=== PATIENT | male | born 1965 | race Caucasian/White ===

== ENCOUNTER 2017-02-14 21:02 | Inpatient (IN) ==
--- NOTE | 2017-02-14 21:33 | Emergency Department Note ---
Arrival - Arrival Chief Complaint: Abdominal / Flank Pain ED Nursing Triage Note: Pt arrives via ems from [facility] for further eval of abnormal ct results. Pt states that his abd started hurting last night and worsened today. Pt at time of triage complains of being thirsty. States that pain is not as bad now, Pt was given 8 mg Morphine and 4 mg Zofran en route to ed. Mode of Arrival: Stretcher Limitations: No Limitations Source: Patient Time Seen by Provider: 02/14/17 21:30 - History of Present Illness HPI Narrative: Patient complains of abdominal pain which started last night and became much worse this morning. He describes it as sharp and left lower quadrant.. No nausea, vomiting or diarrhea. Patient was seen at [facility] where a CT scan was done that showed a probable perforated diverticulitis. Allergies/Adverse Reactions: Allergies Allergy/AdvReac Type Severity Reaction Status Date / Time No Known Allergies Allergy Verified 11/27/14 16:11 Home Medications: Home Medications Medication Instructions Recorded Confirmed Type No Known Home Medications [No 02/14/17 02/14/17 History Known Home Medications] Review of System - Review of System 12 point system: reviewed and no additional remarkable complaints except as stated - Review of System Constitutional: Present: diaphoresis, fever Head/Ears/Nose/Throat: Absent: nasal drainage Respiratory: Absent: cough Cardiovascular: Absent: chest pain Gastrointestinal: Present: abdominal pain. Absent: nausea, vomiting, diarrhea Medical,Surgical,& Family Hx - Medical History Cardio: History of: Hypertension (no meds) - Surgical History Surgical History: noncontributory - Family History Family History: noncontributory - Social History Smoking Status: Never smoker Frequency of Alcohol Use: None Type of Drug Use: None Exam Physical Examination: GENERAL: Alert. No acute distress. HEENT: Normocephalic and atraumatic. There is no nasal drainage. No pharyngeal erythema or exudate. NECK: Normal inspection. Supple. No lymphadenopathy or meningismus. LUNGS: No respiratory distress. Clear to auscultation bilaterally, no wheezes, rales or rhonchi. HEART: Regular rate and rhythm. ABDOMEN: Soft, nondistended with hypoactive bowel sounds. Very tender in the left lower quadrant and less so in the left upper quadrant. No rebound. BACK: Normal inspection. SKIN: Color normal. Warm and dry. EXTREMITIES: Nontender. Normal range of motion. No pedal edema. NEUROLOGICAL/PSYCHIATRIC: Alert and oriented -3 with normal mood and affect. Cranial nerves normal. No motor or sensory deficit. Vital Signs: Vital Signs Temperature 99.6 F 02/14/17 21:02 Pulse Rate 83 02/14/17 21:02 Respiratory Rate 20 02/14/17 21:02 Blood Pressure 120/79 02/14/17 21:02 O2 Sat by Pulse Oximetry 99 02/14/17 21:02 Course - Reevaluation(s) Reevaluation #1: I have discussed patient with Dr. Sheets and will admit to him. Time: 21:33 Results - Labs Lab Results: I have reviewed the patients labs Labs: Labs were done at [facility] and are significant as follows: White blood cell count 24.3. Hemoglobin 13.6 Hematocrit 40.1 Platelets 406 Neutrophils 83.7% Lactic acid 1.6 Glucose 141 BUN 11 Creatinine 1.0 Sodium 141 Potassium 3.1. - Impressions CT of the abdomen done at [place] shows acute distal descending/proximal sigmoid colon diverticulitis with adjacent nonspecific free fluid and evidence of perforation with scattered foci of free air. Disposition Clinical Impression: Diverticulitis, Colon perforation Case discussed with: patient, patient's family Disposition: Still a Patient Condition: Stable Time of Disposition: 21:36
[2017-02-14] MEDS ORDERED: PROMETHAZINE 25 MG/1 ML VIAL IM PRN (22:35)
[2017-02-14] MEDS ORDERED: ONDANSETRON 4 MG/2 ML VIAL IV PRN (22:35)
--- NOTE | 2017-02-14 22:52 | EKG Report ---
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
[2017-02-14] MEDS: SODIUM CHLORIDE 0.45% 1,000 ML IV SCH (23:22)
[2017-02-14] MEDS: metroNIDAZOLE INJ 500 MG in PREMIX 1 EACH IV SCH (23:29)
[2017-02-15] MEDS: PIPERACILLIN/TAZOBACTAM 3,375 MG in SODIUM CHLORIDE 0.9% 100 ML IV SCH ×3 (02:54→18:13)
[2017-02-15] MEDS: HYDROmorphone 2 MG/1 ML VIAL IV PRN (06:26)
[2017-02-15] MEDS: SODIUM CHLORIDE 0.45% 1,000 ML IV SCH ×3 (06:26→22:25)
[2017-02-15] MEDS: PANTOPRAZOLE 40 MG VIAL IV SCH (09:02)
[2017-02-15] MEDS: metroNIDAZOLE INJ 500 MG in PREMIX 1 EACH IV SCH ×3 (09:03→22:14)
--- NOTE | 2017-02-15 09:11 | XRay Report ---
XR chest 1V portable Indication: Respiratory preoperative evaluation Comparison: None available Findings: The heart and mediastinum are normal in size and configuration. The pulmonary vascularity is normal in caliber. No lung infiltrates, effusions, pneumothorax or other abnormality is demonstrated. Impression: No acute cardiopulmonary disease. PROCEDURE INTERPRETED AT [facility] DEPARTMENT OF RADIOLOGY Final Report Signed by: Dr. Antonino Spears
[2017-02-15 10:13] LABS: Basophils # 0.1 10*3/uL (0.0-0.2); Basophils % 0.3 % (0.0-0.8); Eosinophils # 0.1 10*3/uL (0.0-0.87); Eosinophils % 0.7 % (0.00-10.9); Hematocrit 37.2 VOL% (42.0-52.0); Hemoglobin 12.8 GM/DL (14.0-18.0); Immature Granulocytes % 0.6 %; Immature Granulocytes Absolute 0.11 #; Lymphocytes # 2.2 10*3/uL (1.4-4.0); Lymphocytes % 11.9 % (21.2-54.2); Mean Corpuscular HGB Conc 34.4 GM/DL (32-36); Mean Corpuscular Hemoglobin 31 PG (27-34); Mean Corpuscular Volume 88.8 FL (87-102); Mean Platelet Volume 9.2 FL (9.6-12.0); Monocytes # 1.2 10*3/uL (0.11-0.8); Monocytes % 6.4 % (1.7-12.7); Neutrophils # 14.6 10*3/uL (1.4-7.4); Neutrophils % 80.1 % (38.7-73.9); Platelet Count 381 T/CUMM (130-400); Red Blood Count 4.19 MC/CUMM (3.8-5.5); Red Cell Distribution Width 14.4 % (9.3-17.3); White Blood Count 18.3 T/CUMM (4-12)
[2017-02-15 10:43] LABS: Magnesium 2.1 MG/DL (1.8-2.4); Osmolality,Calculated 276.5 MOS/KG (273-304); Potassium 3.5 MMOL/L (3.5-5.1)
--- NOTE | 2017-02-15 11:06 | General Surg History&Physical ---
Assessment and Plan (1) Diverticulitis Status: Acute Assessment and plan: Impression: Diverticulitis with perforation. Plan: He has a few scattered dots of air under the diaphragm and the left lower quadrant but does not have peritonitis. His vital signs remained stable. White blood cell count 18. I reviewed the CT images. As he is stable I have recommended conservative treatment with antibiotic therapy and hopes to avoid surgery with a colostomy. He is in agreement with that plan. He understands that if he fails to improve or his condition worsens clinically that he will likely require emergent surgery. We will continue antibiotics and follow closely. Current Visit: Yes History of Present Illness Chief complaint: Abdominal pain History of present illness: Mr. Jane is a 51 year old male presenting to an outside facility with abdominal pain that began the night before. It slowly progressed and worsened them CT scan was done showing diverticulitis with small dots of air indicating perforation. He was transferred to our emergency room. His vital signs have been stable. He has been afebrile. He has had no nausea vomiting or diarrhea. The pain is localized to the left lower quadrant. He describes it as sharp constant and had worsened until he was admitted. Today he states the pain is generally about the same but it has not worsened. He has no pain anywhere but the left lower quadrant. States he is hungry and wants to eat. Home Medications Medication Instructions Recorded Confirmed Type No Known Home Medications [No 02/14/17 02/14/17 History Known Home Medications] Allergies Allergy/AdvReac Type Severity Reaction Status Date / Time No Known Allergies Allergy Verified 11/27/14 16:11 Medical,Surgical,& Family Hx - Medical History Cardio: History of: Hypertension (no meds) - Surgical History Surgical History: noncontributory Abdominal Surgeries: Surgical HX of: Appendectomy - Family History Family History: noncontributory Family History: Reports;: Family Diabetes (father), Family Heart Disease ( Mother (Heart Attack), Father, (CHF)), Family Hypertension (mother, father), Family Stroke (father) - Social History Smoking Status: Never smoker Frequency of Alcohol Use: None Type of Drug Use: None Exam - Constitutional Vitals: Period Temp Pulse Resp BP Sys/Fulton Pulse Ox Last 24 Hr 98.2 F-99.6 F 75-83 14-20 110-128/63-79 92-99 General appearance: no acute distress - Head Head exam: Present: normocephalic - Neck Neck exam: Present: normal inspection - Respiratory Respiratory exam: Present: clear to auscultation bilaterally - Cardiovascular Cardiovascular exam: Present: RRR - GI/Abdominal GI/Abdominal exam: Present: soft (Tender to palpation in the left lower quadrant with localized rebound. There is no tenderness in the right abdomen and he does not have peritonitis.) - Neurological Exam Neurological exam: Present: alert, oriented X3 Speech: Present: normal - Skin Skin exam: Present: normal color 12 point system: reviewed and no additional remarkable complaints except as stated Results - Labs CBC & BMP: 02/15/17 09:18 02/15/17 09:18 Lab Results: I have reviewed the past 24 hour labs
[2017-02-15] MEDS ORDERED: ACETAMINOPHEN 325 MG TABLET PO PRN (16:28)
[2017-02-16] MEDS: PIPERACILLIN/TAZOBACTAM 3,375 MG in SODIUM CHLORIDE 0.9% 100 ML IV SCH ×3 (01:10→18:22)
[2017-02-16] MEDS: HYDROmorphone 2 MG/1 ML VIAL IV PRN (05:06)
[2017-02-16] MEDS: metroNIDAZOLE INJ 500 MG in PREMIX 1 EACH IV SCH ×3 (05:59→22:12)
[2017-02-16] MEDS: SODIUM CHLORIDE 0.45% 1,000 ML IV SCH ×3 (06:13→16:16)
[2017-02-16 07:59] LABS: Basophils % 0.3 % (0.0-0.8); Eosinophils # 0.2 10*3/uL (0.0-0.87); Eosinophils % 1.6 % (0.00-10.9); Hematocrit 35.2 VOL% (42.0-52.0); Hemoglobin 12.1 GM/DL (14.0-18.0); Immature Granulocytes % 0.5 %; Immature Granulocytes Absolute 0.07 #; Lymphocytes # 2.1 10*3/uL (1.4-4.0); Lymphocytes % 15.5 % (21.2-54.2); Mean Corpuscular HGB Conc 34.4 GM/DL (32-36); Mean Corpuscular Hemoglobin 30 PG (27-34); Mean Corpuscular Volume 86.9 FL (87-102); Mean Platelet Volume 8.9 FL (9.6-12.0); Monocytes # 1.2 10*3/uL (0.11-0.8); Monocytes % 8.9 % (1.7-12.7); Neutrophils # 9.7 10*3/uL (1.4-7.4); Neutrophils % 73.2 % (38.7-73.9); Platelet Count 347 T/CUMM (130-400); Red Blood Count 4.05 MC/CUMM (3.8-5.5); White Blood Count 13.2 T/CUMM (4-12)
[2017-02-16 08:19] LABS: Eosinophils 1 % (0-10); Lymphocytes 16 % (20-55); Segmented Neutrophils 70 % (50-85); Total Cells Counted 100
[2017-02-16 08:20] LABS: Hypochromasia 1+
[2017-02-16 08:21] LABS: Microcytosis 1+; Platelet Estimate Normal
[2017-02-16] MEDS: PANTOPRAZOLE 40 MG VIAL IV SCH (08:38)
--- NOTE | 2017-02-16 12:41 | General Surgery Progress Note ---
Assessment and Plan - Time spent with patient Time spent with patient: Less than 30 minutes (1) Acute diverticulitis Status: Acute Assessment and plan: 51-year-old white male with no reported medical history admitted by Dr. Encarnacion on 02/15/2017 with acute diverticulitis with small perforation. Patient has been started on antibiotics, pain and nausea control, and IV fluids. He is tolerated a liquid diet and he will be advanced to a full liquid diet today. Patient's white blood cell count is down to 13 from 18 yesterday. We are going in the right direction so we will continue with current conservative treatment for now. Dr. Encarnacion has seen and examined patient. Current Visit: Yes Subjective Narrative: Patient feels much better today. His abdominal pain has improved. He is tolerating a liquid diet without any nausea or vomiting or increased pain. Exam - Constitutional Vitals: Period Temp Pulse Resp BP Sys/Fulton Pulse Ox Last 24 Hr 97.2 F-101 F 71-94 16-20 99-142/50-78 92-98 Exam: 51-year-old white male, no acute distress, alert and oriented Chest clear CV regular rate and rhythm Abdomen soft, mildly tender in left lower quadrant Extremities no edema Results - Labs CBC & BMP: 02/16/17 07:38 02/15/17 09:18 Lab Results: I have reviewed the past 24 hour labs
[2017-02-17] MEDS: SODIUM CHLORIDE 0.45% 1,000 ML IV SCH ×5 (00:12→22:52)
[2017-02-17] MEDS: PIPERACILLIN/TAZOBACTAM 3,375 MG in SODIUM CHLORIDE 0.9% 100 ML IV SCH ×3 (02:12→18:10)
[2017-02-17 05:50] LABS: Basophils % 0.2 % (0.0-0.8); Eosinophils # 0.3 10*3/uL (0.0-0.87); Eosinophils % 2.4 % (0.00-10.9); Hematocrit 36.4 VOL% (42.0-52.0); Hemoglobin 12.8 GM/DL (14.0-18.0); Immature Granulocytes % 0.4 %; Immature Granulocytes Absolute 0.05 #; Lymphocytes # 2.3 10*3/uL (1.4-4.0); Lymphocytes % 18.7 % (21.2-54.2); Mean Corpuscular HGB Conc 35.2 GM/DL (32-36); Mean Corpuscular Hemoglobin 30 PG (27-34); Mean Corpuscular Volume 86.3 FL (87-102); Mean Platelet Volume 9.2 FL (9.6-12.0); Monocytes # 1.2 10*3/uL (0.11-0.8); Monocytes % 10.3 % (1.7-12.7); Neutrophils # 8.2 10*3/uL (1.4-7.4); Platelet Count 419 T/CUMM (130-400); Red Blood Count 4.22 MC/CUMM (3.8-5.5); Red Cell Distribution Width 13.8 % (9.3-17.3); White Blood Count 12.1 T/CUMM (4-12)
[2017-02-17 06:18] LABS: Calcium 8.4 MG/DL (8.5-10.1); Magnesium 2.2 MG/DL (1.8-2.4); Osmolality,Calculated 275.4 MOS/KG (273-304); Potassium 3.8 MMOL/L (3.5-5.1)
[2017-02-17] MEDS: metroNIDAZOLE INJ 500 MG in PREMIX 1 EACH IV SCH ×3 (06:25→22:52)
[2017-02-17] MEDS: PANTOPRAZOLE 40 MG VIAL IV SCH (08:12)
--- NOTE | 2017-02-17 14:51 | General Surgery Progress Note ---
Assessment and Plan - Time spent with patient Time spent with patient: Less than 30 minutes (1) Acute diverticulitis Status: Acute Assessment and plan: 51-year-old white male with no reported medical history admitted by Dr. Encarnacion on 02/15/2017 with acute diverticulitis with small perforation. Patient has been started on antibiotics, pain and nausea control, and IV fluids. He is tolerated a liquid diet and he will be advanced to a full liquid diet today. Patient's white blood cell count is down to 13 from 18 yesterday. We are going in the right direction so we will continue with current conservative treatment for now. Dr. Encarnacion has seen and examined patient. 02/17/2017 patient feeling much better today. He is getting better. His white count is down to 12.1. He did run a low-grade fever of 99 last night but is afebrile today. His abdomen is still sore in the left lower quadrant but even improved from yesterday. Continue antibiotics and advance diet to regular diet. Possible DC home tomorrow. Dr. Encarnacion has seen and examined patient further recommendations to follow. Current Visit: Yes Subjective Narrative: Patient feels much better today. He is tolerating a full liquid diet. No complaints of fever or abdominal pain. Exam - Constitutional Vitals: Period Temp Pulse Resp BP Sys/Fulton Pulse Ox Last 24 Hr 97.1 F-99.3 F 67-84 15-18 117-143/69-85 95-100 Exam: 51-year-old white male, no acute distress, alert and oriented Chest clear CV regular rate and rhythm Abdomen soft and mildly tender in the left lower quadrant Extremities no edema Results - Labs CBC & BMP: 02/17/17 05:02 02/17/17 05:02 Lab Results: I have reviewed the past 24 hour labs
[2017-02-18] MEDS: PIPERACILLIN/TAZOBACTAM 3,375 MG in SODIUM CHLORIDE 0.9% 100 ML IV SCH ×2 (04:30→10:14)
[2017-02-18] MEDS: SODIUM CHLORIDE 0.45% 1,000 ML IV SCH (06:41)
--- NOTE | 2017-02-18 09:34 | Discharge Summary ---
Hospital Course - Hospital Course Hospital Course: Mr. Jane is a 51-year-old white male with no medical history admitted by Dr. Encarnacion on 02/14/2017 from an outside facility with abdominal pain. Patient states that it slowly progressed and CT scan showed diverticulitis with small dots of air indicating perforation and an elevated white count of 18. He was transferred to [facility] emergency room. He was admitted and started on IV antibiotics and a clear liquid diet. His vital signs remained stable and he did not have peritonitis. Patient's white count is now normalized and his pain has greatly improved. Patient now has some mild left lower quadrant tenderness but he is tolerating a diet and having bowel movements. Patient will be discharged home on p.o. antibiotics, stool softeners, and Tylenol for pain. Patient will follow-up with Dr. Encarnacion in his office in 2 weeks. Complete discharge instructions were given. Care coordination, chart review, and completed discharge paperwork took approximately 35 minutes. - Time spent with patient Time with patient DS: Greater than 30 minutes Diagnosis - Discharge Diagnosis (1) Acute diverticulitis Status: Resolved Specialty Discharge - Follow Up or Referrals Follow up with: Serg Encarnacion MD [Physician] - 03/04/17 9:00 am (2weeks ) Discharge Plan - Discharge Data Disposition: Disch To Home/Self Care Condition at Discharge: Stable Discharge Diet: advance to your usual diet Activity: resume usual activities as tolerated Hygiene: may shower Driving: no restrictions Contact your physician if you experience:: fever over 101, Nausea/Vomiting, pain uncontrolled by pain medications - Discharge Medications New Acetaminophen Tab [Tylenol Tab] 650 mg PO Q6H PRN tablet PRN Reason: Fever, Headache, Mild Pain Ciprofloxacin Tab [Cipro Tab] 500 mg PO BID #28 tablet Polyethylene Glycol Powder [Miralax] 17 gm PO DAILY #238 gm metroNIDAZOLE TAB [Flagyl Cap/Tab] 500 mg PO TID #42 tablet - Follow Up or Referral Follow Up: Serg Encarnacion MD [Physician] - 03/04/17 9:00 am (2weeks ) - Forms/Instructions Instructions: Diverticulitis (DC), Diverticulitis (GEN) Exam - Constitutional Vitals: Period Temp Pulse Resp BP Sys/Fulton Pulse Ox Last 24 Hr 97.5 F-98.7 F 65-80 15-19 131-146/75-90 96-99 Exam: 51-year-old white male, no acute distress, alert and oriented Chest clear CV regular rate and rhythm Abdomen soft, mildly tender to deep palpation left lower quadrant, good bowel sounds Extremities no edema DS: Provider Date of admission: 02/14/17 21:37 Primary care physician: . No PCP Attending physician on admission: Serg Encarnacion MD Discharging clinician: VIKAS Ren Expected date of discharge: 02/18/17
[2017-02-18] MEDS: PANTOPRAZOLE 40 MG VIAL IV SCH (09:54)
[2017-02-18] MEDS: metroNIDAZOLE INJ 500 MG in PREMIX 1 EACH IV SCH ×2 (09:55→10:13)
[2017-02-18 12:01] VITALS: BP 134/88
== END 2017-02-18 12:15 | disposition home or self-care (01) | DRG 392 ==
LOC: EDBD → EDUNIT# → N.ED 21:02 → N.EDINP 21:37 → N.3E 22:04
PROVIDERS: ADMIT Surgery; ATTEND Surgery